=== PATIENT | female | born 1995 | race Caucasian/White ===

== ENCOUNTER 2017-03-07 21:55 | Outpatient (CLI) | payer OTHER | END 2017-03-07 23:57 | disposition home or self-care (01) | LOC: GENOP 21:55 | DX: O36.8130 Decreased fetal movements, third trimester, not applicable or unspecified (principal); M54.9 Dorsalgia, unspecified; R10.9 Unspecified abdominal pain; Z3A.38 38 weeks gestation of pregnancy | CPT/HCPCS: 81001; G0463 ==

== ENCOUNTER 2017-03-19 05:17 | Inpatient (IN) | payer OTHER ==
[~2017-03-19] VITALS: Ht 165.1 cm; Wt 95.7 kg
[2017-03-19 06:24] LABS: RED BLOOD COUNT 3.56 M/UL (4.00-5.10)
[2017-03-20 03:14] LABS: HEMOGLOBIN 8.8 gm/dl (12.3-15.3)
[2017-03-21] MEDS ORDERED: FERROUS SULFAT325 M2 PO (17:09)
[2017-03-21] MEDS ORDERED: NORCO 5-325 TA1 EACH PO (17:10)
[2017-03-21] MEDS ORDERED: IBUPROFEN600 MG PO (17:10)
[2017-03-21] MEDS ORDERED: COLACE 100MG C100 MG PO (17:11)
== END 2017-03-21 16:17 | disposition home or self-care (01) | DRG 775 ==
LOC: OB 05:17
PROVIDERS: Obstetrics & Gynecology; ADMIT Obstetrics & Gynecology
PROC: 0UQMXZZ Repair Vulva, External Approach (ICD-10-PCS; principal; 2017-03-19)
PROC: 10E0XZZ Delivery of Products of Conception, External Approach (ICD-10-PCS; 2017-03-19)
PROC: 3E033VJ Introduction of Other Hormone into Peripheral Vein, Percutaneous Approach (ICD-10-PCS; 2017-03-19)
PROC: 10907ZC Drainage of Amniotic Fluid, Therapeutic from Products of Conception, Via Natural or Artificial Opening (ICD-10-PCS; 2017-03-19)
PROC: 3E0R3CZ (ICD-10-PCS; 2017-03-19)
DX: O48.0 Post-term pregnancy (principal); O71.82 Other specified trauma to perineum and vulva; Z3A.40 40 weeks gestation of pregnancy; Z37.0 Single live birth; O99.214 Obesity complicating childbirth; E66.9 Obesity, unspecified; Z68.35 Body mass index [BMI] 35.0-35.9, adult
CPT/HCPCS: 36415; 51702; 82800; 85014; 85018; 85025; J2300; J2405; J2590; J2795; J3010; J7120